=== PATIENT | male | born 2000 | race Caucasian/White ===

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

== ENCOUNTER 2021-07-05 15:26 | Emergency (ER) | payer OTHER ==
[2021-07-05] MEDS ORDERED: diphenhydrAMINE 50 MG/ML VIAL ONE (16:18)
[2021-07-05] MEDS ORDERED: Metoclopramide HCl 10 MG/2 ML VIAL ONE (16:18)
[2021-07-05] MEDS ORDERED: Acetaminophen 500 MG TAB ONE (16:18)
[2021-07-05] MEDS ORDERED: Ketorolac Tromethamine 30 MG/ML VIAL ONE (17:24)
[2021-07-05] MEDS ORDERED: Dexamethasone 4 mg/ml Vial ONE (17:48)
[2021-07-05] MEDS ORDERED: Magnesium 2 GM/50 ML BAG (IN WATER) ONE (17:48)
== END 2021-07-05 19:46 | disposition home or self-care (01) ==
LOC: ERS 15:26
DX: R51.9 Headache, unspecified (principal); Z79.899 Other long term (current) drug therapy
CPT/HCPCS: 70450; 96365; 96367; 96375; J1100; J1200; J1885; J2765; J3475